=== PATIENT | female | born 1985 | race American Indian/Alaskan Native ===

== ENCOUNTER 2019-06-08 11:37 | Emergency (ER) | payer SELFPAY ==
[2019-06-08 12:29] VITALS: BP 107/77
--- NOTE | 2019-06-08 12:43 | Emergency Department Report ---
Chief Complaint: Urogenital-Female Stated Complaint: STD CHECK Time Seen by Provider: 06/08/19 12:38 - HPI History of Present Illness: Patient comes in for STD treatment. Was told that her partner test positive for trichamonas. Patient does admit to vaginal discharge but no abdominal pain. Vaginal discharge time 1 month. Denies any N/V or dysuria. - ROS Review of Systems: Vaginal discharge No abdominal pain - Exam Vital Signs: Vital Signs 06/08/19 12:27 Temperature 98.3 F Pulse Rate 88 Respiratory 16 Rate Blood Pressure 107/77 [Right] O2 Sat by Pulse 99 Oximetry Physical Exam: Non toxic NAD NOrmal gait. MSE screening note: Focused history and physical exam performed. Due to findings the following was ordered: Patient will be treated for trichamonas ED Disposition for MSE Clinical Impression: Exposure to trichomonas Disposition: MED SCREENING EXAM-LEFT Is pt being admited?: No Does the pt Need Aspirin: No Condition: Stable Instructions: Trichomoniasis (ED), Safe Sex (ED), Sexually Transmitted Diseases (ED) Additional Instructions: Take medication as prescribed. Follow up with the health department for further testing. Prescriptions: metroNIDAZOLE [Flagyl] 2,000 mg PO ONCE #4 tab Referrals: [facility] [Outside] - 3-5 Days [facility] [Outside] - 3-5 Days [facility] [Outside] - 3-5 Days Forms: Work/School Release Form(ED)
== END 2019-06-08 14:46 | disposition left against medical advice (07) ==
LOC: ED 11:37
DX: Z20.828 Contact with and (suspected) exposure to other viral communicable diseases (principal)
CPT/HCPCS: 99281